=== PATIENT | female | born 1955 | race Caucasian/White ===

== ENCOUNTER 2016-12-04 03:41 | Inpatient (IN) | payer MEDICAID ==
[2016-12-04] MEDS ORDERED: PHENOBARB/HYOSCY/ATROPINE/SCOP 16.2 MG/5 ML SYR ONE (04:04)
[2016-12-04] MEDS ORDERED: MAG-AL PLUS XS SUSP 30 ML UDC ONE (04:04)
[2016-12-04] MEDS ORDERED: LIDOCAINE VISCOUS 2% 15 ML UDC ONE (04:05)
[2016-12-04 04:12] LABS: BASOPHIL# 0.3 X 10^3uL (0.0-0.1); BASOPHILS 1.5 % (0.0-2.0); EOSINOPHILS 2.6 % (0.0-6.0); EOSINOPHILS# 0.4 X 10^3uL (0.0-0.4); HEMATOCRIT 41.1 % (36.0-48.0); HEMOGLOBIN 14.1 g/dL (12.0-16.0); LYMPHOCYTES 19.3 % (20.0-40.0); LYMPHOCYTES# 3.3 X 10^3uL (0.8-3.8); MEAN CELL VOLUME 89.5 fL (80.0-100.0); MEAN CORPUS. HGB CONCENTRATION 34.2 g/dL (32.0-36.0); MEAN CORPUSCULAR HEMOGLOBIN 30.6 pg (29.0-35.0); MEAN PLATELET VOLUME 7.2 fL (7.4-10.4); MONOCYTES 7.5 % (2.0-10.0); MONOCYTES# 1.3 X 10^3uL (0.2-1.0); NEUTROPHILS# 11.8 X 10^3uL (2.6-6.7); PLATELET COUNT 590 X 10^3uL (130-440); RED BLOOD COUNT 4.59 X 10^6uL (4.20-6.10); RED CELL DISTRIBUTION WIDTH 12.9 % (11.5-14.5); WHITE BLOOD COUNT 17.1 X 10^3uL (3.9-10.7)
[2016-12-04] MEDS ORDERED: HYDROmorphone HCL 1 MG/ML SYR ONE ×3 (04:19→13:33)
[2016-12-04 04:20] LABS: ALBUMIN 4.5 g/dL (3.5-5.0); ALKALINE PHOSPHATASE 99 U/L (38-126); ALT 28 U/L (9-52); AST 20 U/L (14-36); BILIRUBIN, DIRECT 0.2 mg/dL (0.0-0.4); BILIRUBIN, TOTAL 0.6 mg/dL (0.2-1.3); BLOOD UREA NITROGEN 14 mg/dL (7-17); CALCIUM 9.4 mg/dL (8.4-10.2); CHLORIDE 100 mmol/L (98-107); CREATININE 0.9 mg/dL (0.5-1.0); EST GLOMERULAR FILTRATION RATE > 60 mL/min; GLUCOSE 141 mg/dL (70-100); LIPASE 55 U/L (23-300); SODIUM 137 mmol/L (137-145); TOTAL PROTEIN 7.9 g/dL (6.3-8.2)
[2016-12-04] MEDS ORDERED: LORazepam 2 MG/ML INJ ONE (04:20)
[2016-12-04 04:26] LABS: NEUTROPHILS 69.1 % (54.0-75.0)
[2016-12-04] MEDS ORDERED: ONDANSETRON HCL 4 MG/2 ML VIAL ONE ×2 (08:54→19:48)
[2016-12-04] MEDS ORDERED: DIAZEPAM 10 MG/2 ML SYR ONE (10:46)
[2016-12-04] MEDS ORDERED: KETOROLAC TROMETHAMINE 30 MG/ML VIAL ONE (11:07)
[2016-12-04 11:35] LABS: TROPONIN I < 0.012 ng/mL (0.00-0.034)
[2016-12-04 12:53] LABS: URINE MUCUS NONE SEEN (Up to 25%); URINE RBC NONE SEEN (0-5/hpf); URINE SQUAMOUS EPITHELIAL CELL NONE SEEN (<= 15/hpf)
[2016-12-04 13:03] LABS: URINE APPEARANCE SLIGHTLY CLOUDY; URINE COLOR YELLOW; URINE LEUKOCYTE ESTERASE 75 WBC/uL (2+) (NEGATIVE); URINE NITRITE NEGATIVE (NEGATIVE); URINE PH 5.5 (5-7)
[2016-12-04 13:04] LABS: URINE BACTERIA <10 ORGANISMS/hpf (<10/hpf); URINE BILIRUBIN NEGATIVE (NEGATIVE); URINE BLOOD NEGATIVE (NEGATIVE); URINE GLUCOSE NORMAL (NEGATIVE); URINE KETONE NEGATIVE (NEGATIVE); URINE PROTEIN NEGATIVE (NEG - TRACE); URINE TRANSITIONAL EPI CELL 0-5/hpf (<=5/hpf); URINE UROBILINOGEN 0.2mg/dL (Normal) (NEG-1mg/dL)
--- NOTE | 2016-12-04 13:31 | CT REPORT ---
HISTORY: Acute chest pain, shortness of breath and elevated d-dimer. TECHNIQUE: This examination was performed using automated exposure control, adjustment of mA or kV according to patient size, and/or use of iterative reconstruction technique. Thin section axial CT images were obt ained through the chest and reformatted in coronal planes after the intravenous administration of 100 cc Isovue 370 contrast. Three-D reformatted images were created and viewed on a 3-D workstation. FINDINGS: There is no pulmonary embolus. There is a moderate-large left pleural effusion with associated compre ssive atelectasis in the left lower lobe. There is no pneumothorax. There is mild dependent atelectasis in the right lower lobe. Bilateral breast prostheses are noted. No osseous lesions are seen. IMPRESSION: 1. No evidence of a pulmonary embolus. 2. Moderate-large left pleural effusion with moderate associated compressive atelectasis in the left lower lobe. Superimposed pneumonia cannot be excluded. Final Electronic Signature: This report was electronically signed by Ron Alford MD on 017 1:28 PM. regulo /
[2016-12-04] MEDS ORDERED: CEFTRIAXONE SODIUM 1,000 MG/10 ML VIAL ONE (14:00)
[2016-12-04] MEDS ORDERED: NORMAL SALINE 200 ML IV ONE (14:01)
[2016-12-04] MEDS ORDERED: AZITHROMYCIN IV ONE (14:01)
[2016-12-04] MEDS ORDERED: HOME MEDICATION LIST NEEDED 1 EA EACH MC ONE (14:20)
[2016-12-04] MEDS ORDERED: ALBUTEROL 0.083% 2.5 MG/3 ML VIAL.NEB IH PRN (14:32)
[2016-12-04] MEDS ORDERED: MORPHINE PCA 30 MG/30 ML PCA.VIAL IV PRN ×2 (14:59→16:17)
[2016-12-04] MEDS ORDERED: NALOXONE HCL 0.4 MG/ML VIAL IV PRN (14:59)
--- NOTE | 2016-12-04 15:25 | ER PHYSICIAN DOCUMENTATION ---
Physician Documentation [facility] Name:Candy Valencia Age:61 yrs Sex:Female :1955 Arrival Date:12/04/2016 Time:03:41 Bed4 Private MD: Asif Alcaraz Disposition: 12/04/16 13:56 Admit ordered for Doni Brink. Preliminary diagnosis are Atypical Chest Pain, Pleural Effusion, Unspecified, Pneumonia, Unspecified. - Bed requested for Medical/Surgical. - Condition is Fair. - Problem is new. - Symptoms are unchanged. 23 HR OBS Yes HPI: 12/04 13:36 This 61 yrs old Female presents to ER via Walk In with complaints of jm Abdominal Pain. 13:36 The patient presents with abdominal pain in the left lower quadrant. Onset: The jm symptoms/episode began/occurred 4 day(s) ago. The symptoms do not radiate. Associated signs and symptoms: none. The symptoms are described as sharp, stabbing. Modifying factors: the symptoms are aggravated by breathing deeply, movement. Severity of pain: in the emergency department the pain is a 10 / 10. The patient has not experienced similar symptoms in the past. The patient has not recently seen a physician. Pt's had 3 days of chest pain that has worsened. Pt thinks she lifted too much weight. No cough or fever. No hx of clots. . Historical: - Allergies: No known drug Allergies; - Home Meds: 1. Seroquel Oral 2. Wellbutrin Oral 3. Lamictal Oral - PMHx: BIPOLAR DISORDER; - PSHx: c section; - Tetanus: < 10 years. - Ebola Screening: : Patient denies exposure to infectious person. Patient denies travel to an Ebola-affected area in the 21 days before illness onset. . - Immunization history: Flu Vaccine None. - Social history: Smoking status: Patient states was never smoker of tobacco. Patient/guardian denies using alcohol. - Code Status:: Full code. ROS: 13:38 Constitutional: Negative for fatigue, fever. jm 13:38 Cardiovascular: Positive for chest pain. 13:38 Respiratory: Positive for pleurisy, Negative for cough. 13:38 Abdomen/GI: Positive for abdominal pain, Negative for nausea, vomiting. 13:38 All other systems are negative. Exam: 13:39 Constitutional: The patient appears alert, awake. chase 13:39 Eyes: Periorbital structures: appear normal, Extraocular movements: intact throughout. 13:39 ENT: Mouth: is normal, Voice: is normal. 13:39 Chest/axilla: Palpation: tenderness, that is mild, of the left lateral anterior chest and left breast, that partially reproduces the patient's complaints, Breasts: are normal. 13:39 Cardiovascular: Rate: normal, Rhythm: regular. 13:39 Respiratory: Respirations: normal, Breath sounds: are normal. 13:39 : CVA tenderness, is absent, Bladder: is normal. 13:39 Musculoskeletal/extremity: DVT Exam: No signs of deep vein thrombosis. Calves: are non-tender, have equal circumference. 13:39 Skin: Appearance: Color: pink, no rash present. 13:39 Neuro: Mentation: is normal, Memory: is normal. 13:39 Psych: Behavior/mood is pleasant, cooperative, anxious, Affect is calm. Vital Signs: 04:03 BP 133 / 83; Pulse 98; Resp 28; Temp 98.1; Pulse Ox 94% on R/A; Weight 47.63 kg; Height lb 5 ft. 3 in. (160.02 cm); Pain 10/10; 04:40 BP 95 / 70; lb 06:00 BP 80 / 60; Pulse 75; Resp 12; Pulse Ox 92% on R/A; Pain 1/10; tg 06:40 BP 94 / 66; Pulse 75; Pulse Ox 92% on R/A; tg 08:14 BP 93 / 65; Pulse 74; Pulse Ox 92% on R/A; tg 09:15 BP 97 / 58; Pulse 75; Pain 3/10; tg 13:20 BP 96 / 63; Pulse 81; Resp 22; Temp 99.2; Pulse Ox 93% on 2 lpm NC; Pain 8/10; rs 15:09 BP 92 / 54; Pulse 80; Pulse Ox 98% on NC; tg 04:03 Body Mass Index 18.60 (47.63 kg, 160.02 cm) lb MDM: 04:06 Patient medically screened. chase 11:06 Differential diagnosis: non-specific abd pain, pancreatitis, rib/muscle starin/sprain. chase PE. IA. Data reviewed: vital signs, nurses notes, old medical records, lab test result(s), EKG, radiologic studies, and as a result, I will discharge patient. Counseling: I had a detailed discussion with the patient and/or guardian regarding: the historical points, exam findings, and any diagnostic results supporting the discharge/admit diagnosis, lab results, radiology results, the need for outpatient follow up, with the patient's primary care provider. Medication response: The patient's symptoms have improved, Dilaudid. ED course: I cannot find an emergent cause for the pt's pain. Her WBC is up, but pt was VERY stressed out on arrival. Her pain is very positional, palpable, and worse w deep inspiration. PE was unlikely, but I did a D-dimer which was slightly bumped but way under the new thresholds that we use for concern (agex10). Pt is better after meds. . 13:40 Physician consultation: Doni Brink MD regarding admission, and will see patient jm immediately. ED course: CT shows a moderate to large pleural effusion. This could represent a PNA, so will will get blood clx and start CAP Abx. Dr. Brink will come see and write orders. . 17:55 EKG attached tg 12/04 04:22 Order name: BASIC METABOLIC PANEL; Complete Time: 12:32 EDMS 12/04 04:22 Order name: HEPATIC PANEL; Complete Time: 12:32 EDMA 12/04 04:22 Order name: LIPASE; Complete Time: 12:32 ED12/04 04:26 Order name: CBC AUTO DIF, MDIF/RMOR IF IND; Complete Time: 12:32 EDMA 12/04 10:53 Order name: DDIMER; Complete Time: 11:06 EDMA 12/04 11:36 Order name: TROPONIN I; Complete Time: 12:32 EDMA 12/04 13:05 Order name: UA W/ MICRO -CULTURE IF IND; Complete Time: 13:30 EDMS 12/04 13:34 Order name: CAT SCAN; CHEST ANGIO 16616 EDMA 12/04 03:55 Order name: NPO; Complete Time: 03:57 lb 12/04 04:37 Order name: 12-lead EKG; Complete Time: 04:39 jm 12/04 10:40 Order name: Oxygen; Complete Time: 10:45 tg Dispensed Medications: Completed: Rocephin 1 grams IVPB once 03:57 Drug: GI Cocktail w/ Donnatol - (Maalox Suspension 30 ml, Phenobarbital-Belladonna 15 lb ml, Lidocaine Liquid 2 % 15 ml); Route: PO; 04:15 Follow up: Response: Pain is unchanged, physician notified lb 04:14 Drug: Ativan 1 mg; Route: IVP; Site: left antecubital; lb 04:40 Follow up: Response: Anxiety decreased lb 04:14 Drug: Dilaudid 1 mg; Route: IVP; Site: left antecubital; lb 04:39 Follow up: Response: Pain is decreased lb 06:00 Drug: NS 0.9% 1000 ml; Route: IV; Rate: bolus; Site: left antecubital; Delivery: tg [place] Tubing; 08:54 Follow up: IV Status: Completed infusion; IV Intake: 1000ml tg 08:54 Drug: Zofran 4 mg; Route: IVP; Infused Over: 2 mins; Site: left antecubital; tg 09:15 Follow up: Response: No adverse reaction tg 08:54 Drug: Dilaudid 0.5 mg; Route: IVP; Site: left antecubital; tg 09:15 Follow up: Response: No adverse reaction; Pain is decreased tg 09:20 Drug: Dilaudid 0.5 mg; Route: IVP; Site: left antecubital; tg 10:44 Follow up: Response: No adverse reaction; Pain is increased tg 10:33 CANCELLED (Physician Discretion): Ativan 1 mg IVP once jm 10:39 Drug: Valium 5 mg; Route: IVP; Site: left antecubital; tg 10:58 Follow up: Response: No change in condition tg 10:59 Drug: Toradol 30 mg; Route: IVP; Site: left antecubital; tg 13:57 Follow up: Response: No adverse reaction; No change in condition tg 13:27 Drug: Dilaudid 1 mg; Route: IVP; Rate: 0.5 mg/min; Infused Over: 2 mins; Site: left rs antecubital; 14:53 Follow up: Response: No adverse reaction; No change in condition; Pain is decreased rs 14:00 Drug: Rocephin 1 grams; Volume: 100 ml; Route: IVPB; Rate: 100 ml/hr; Site: left rs antecubital; 14:30 Follow up: Response: No adverse reaction; IV Status: Completed infusion; IV Intake: rs 100ml 14:42 Drug: Zithromax 500 mg; Volume: 100 ml; Route: IVPB; Rate: 100 ml/hr; Site: left rs antecubital; Delivery: IVPB Tubing; 14:54 Follow up: Response: No adverse reaction rs 15:27 Follow up: IV Status: Completed infusion; IV Intake: 100ml tg Signatures: Robb Padilla RN RN tg Stalker, Rachael, RN RN rs Meyer, John, MD MD jm Bollock, Lynda lb
--- NOTE | 2016-12-04 15:25 | ER NURSING DOCUMENTATION ---
Nurse's Notes [facility] Name:Candy Valencia Age:61 yrs Sex:Female :1955 Arrival Date:12/04/2016 Time:03:41 Bed4 Private MD: Diagnosis:Atypical Chest Pain;Pleural Effusion, Unspecified;Pneumonia, Unspecified Presentation: 12/04 03:50 Notified ED Physician of [place] notified. lb 03:50 Acuity: INOCENTE 3 lb 03:59 Presenting complaint: Patient states: left upper quad abd pain for 3 hrs, constant, lb unable to find any relief. denies n/v/d. no fever. Transition of care: Home. 03:59 Method Of Arrival: Walk In lb Triage Assessment: 04:01 General: Appears distressed, uncomfortable, Behavior is anxious, restless. Pain: lb Complains of pain in left upper quadrant Pain does not radiate. Pain currently is 10 out of 10 on a pain scale. Pain began 3 hours ago. GI: Abdomen is flat, non- distended. Historical: - Allergies: No known drug Allergies; - Home Meds: 1. Seroquel Oral 2. Wellbutrin Oral 3. Lamictal Oral - PMHx: BIPOLAR DISORDER; - PSHx: c section; - Tetanus: < 10 years. - Ebola Screening: : Patient denies exposure to infectious person. Patient denies travel to an Ebola-affected area in the 21 days before illness onset. . - Immunization history: Flu Vaccine None. - Social history: Smoking status: Patient states was never smoker of tobacco. Patient/guardian denies using alcohol. - Code Status:: Full code. Screenin:04 Infectious Disease Risk None. Abuse screen: Denies threats or abuse. Denies injuries lb from another. Nutritional screening: No deficits noted. Assessment: 04:04 See Triage Assessment done by same RN. lb 05:21 Reassessment: pt much improved. will rest in ED until med reaction wears off. will lb monitor. 08:50 Reassessment: Patient states symptoms have not improved. Pt states pain suddenly tg returned to left lower rib area. Dr. Gagnon notified, new order for IV Dilaudid. . 09:49 Reassessment: Patient states feeling better. Patient states symptoms have improved. Pt tg not ready to go home yet, she would like to make sure the pain medicine continues to work. . Vital Signs: 04:03 BP 133 / 83; Pulse 98; Resp 28; Temp 98.1; Pulse Ox 94% on R/A; Weight 47.63 kg; Height lb 5 ft. 3 in. (160.02 cm); Pain 10/10; 04:40 BP 95 / 70; lb 06:00 BP 80 / 60; Pulse 75; Resp 12; Pulse Ox 92% on R/A; Pain 1/10; tg 06:40 BP 94 / 66; Pulse 75; Pulse Ox 92% on R/A; tg 08:14 BP 93 / 65; Pulse 74; Pulse Ox 92% on R/A; tg 09:15 BP 97 / 58; Pulse 75; Pain 3/10; tg 13:20 BP 96 / 63; Pulse 81; Resp 22; Temp 99.2; Pulse Ox 93% on 2 lpm NC; Pain 8/10; rs 15:09 BP 92 / 54; Pulse 80; Pulse Ox 98% on NC; tg 04:03 Body Mass Index 18.60 (47.63 kg, 160.02 cm) lb ED Course: 03:42 Patient arrived in ED. jt 03:50 Taisha Marion is Primary Nurse. lb 03:55 Triage completed. lb 04:04 Valuables Remains with patient Patient has correct armband on for positive lb identification. Placed in gown. Bed in low position. 04:06 Asif Gagnon MD is Attending Physician. jm 04:06 Inserted peripheral IV: saline lock: 20 gauge in left antecubital area and blood jt collected. 04:40 EKG done per protocol. Performed by ED Staff. lb 04:48 Port Xray Completed. hz 06:57 Appears to be sleeping. tg 06:57 Pulse Ox - RN Monitoring Only. tg 10:40 Oxygen Oxygen administration via nasal cannula @ 2L/min. tg 11:00 Door closed. Noise minimized. Lights dimmed. Verbal reassurance given. Warm blanket rs given. Diet: Patient is NPO. 12:[address] pm1 12:54 Wound care. tg 13:16 Patient moved back from CT. pm1 13:55 Doni Brink MD is Admitting Physician. jm 13:58 First set of blood cultures drawn Second set of blood cultures drawn by me by Lab tg staff. Inserted peripheral IV: 22 gauge in right forearm. 17:55 EKG attached tg Administered Medications: Completed: Rocephin 1 grams IVPB once 03:57 Drug: GI Cocktail w/ Donnatol - (Maalox Suspension 30 ml, Phenobarbital-Belladonna 15 lb ml, Lidocaine Liquid 2 % 15 ml); Route: PO; 04:15 Follow up: Response: Pain is unchanged, physician notified lb 04:14 Drug: Ativan 1 mg; Route: IVP; Site: left antecubital; lb 04:40 Follow up: Response: Anxiety decreased lb 04:14 Drug: Dilaudid 1 mg; Route: IVP; Site: left antecubital; lb 04:39 Follow up: Response: Pain is decreased lb 06:00 Drug: NS 0.9% 1000 ml; Route: IV; Rate: bolus; Site: left antecubital; Delivery: tg [place] Tubing; 08:54 Follow up: IV Status: Completed infusion; IV Intake: 1000ml tg 08:54 Drug: Zofran 4 mg; Route: IVP; Infused Over: 2 mins; Site: left antecubital; tg 09:15 Follow up: Response: No adverse reaction tg 08:54 Drug: Dilaudid 0.5 mg; Route: IVP; Site: left antecubital; tg 09:15 Follow up: Response: No adverse reaction; Pain is decreased tg 09:20 Drug: Dilaudid 0.5 mg; Route: IVP; Site: left antecubital; tg 10:44 Follow up: Response: No adverse reaction; Pain is increased tg 10:33 CANCELLED (Physician Discretion): Ativan 1 mg IVP once jm 10:39 Drug: Valium 5 mg; Route: IVP; Site: left antecubital; tg 10:58 Follow up: Response: No change in condition tg 10:59 Drug: Toradol 30 mg; Route: IVP; Site: left antecubital; tg 13:57 Follow up: Response: No adverse reaction; No change in condition tg 13:27 Drug: Dilaudid 1 mg; Route: IVP; Rate: 0.5 mg/min; Infused Over: 2 mins; Site: left rs antecubital; 14:53 Follow up: Response: No adverse reaction; No change in condition; Pain is decreased rs 14:00 Drug: Rocephin 1 grams; Volume: 100 ml; Route: IVPB; Rate: 100 ml/hr; Site: left rs antecubital; 14:30 Follow up: Response: No adverse reaction; IV Status: Completed infusion; IV Intake: rs 100ml 14:42 Drug: Zithromax 500 mg; Volume: 100 ml; Route: IVPB; Rate: 100 ml/hr; Site: left rs antecubital; Delivery: IVPB Tubing; 14:54 Follow up: Response: No adverse reaction rs 15:27 Follow up: IV Status: Completed infusion; IV Intake: 100ml tg Intake: 08:54 IV: 1000ml; Total: 1000ml. tg 14:30 IV: 100ml; Total: 1100ml. rs 15:27 IV: 100ml; Total: 1200ml. tg Outcome: 05:30 Discharge ordered by . chase 13:56 Decision to Admit by Provider. jm 15:23 Admitted to Med/surg accompanied by nurse, via stretcher, with oxygen. tg 15:23 Condition: improved 15:23 Report given to MARTIN Stuart 15:23 Discharge Assessment: Patient awake and alert. 15:23 Instructed on need to admit 15:23 Admitted to Med/surg accompanied by nurse. rs 15:23 Condition: improved 15:24 Patient left the ED. tg Signatures: Robb Padilla RN RN tg Zulay Blunt RN RN rs Meyer, John, MD MD jm McBride, Philisha pm1 Kita Perez Lynda lb Zolnowski, Heather
[2016-12-04] MEDS: NORMAL SALINE 1,000 ML IV SCH (16:00)
[2016-12-04] MEDS ORDERED: POLYETHYLENE GLYCOL 3350 17 GM POWD.PACK PO SCH (16:00)
[2016-12-04] MEDS ORDERED: NORMAL SALINE 1,000 ML IV ONE (16:04)
[2016-12-04] MEDS ORDERED: ONDANSETRON HCL 4 MG/2 ML VIAL IV PRN (19:45)
[2016-12-04] MEDS: LAMOTRIGINE 25 MG TABLET PO SCH (20:34)
[2016-12-04] MEDS: DOCUSATE SODIUM 100 MG CAPSULE PO SCH (20:34)
[2016-12-04] MEDS ORDERED: QUETIAPINE FUMARATE 100 MG TABLET PO SCH (21:00)
[2016-12-05] MEDS ORDERED: O2 HUMIDIFIER 650 ML BOTTLE INHALATION ONE (01:35)
[2016-12-05] MEDS: NORMAL SALINE 1,000 ML IV SCH (06:30)
[2016-12-05 06:31] LABS: BLOOD UREA NITROGEN 7 mg/dL (7-17); CALCIUM 8.1 mg/dL (8.4-10.2); CHLORIDE 102 mmol/L (98-107); CREATININE 0.6 mg/dL (0.5-1.0); EST GLOMERULAR FILTRATION RATE > 60 mL/min; GLUCOSE 106 mg/dL (70-100); POTASSIUM 3.8 mmol/L (3.5-5.1); SODIUM 132 mmol/L (137-145)
[2016-12-05 06:35] VITALS: O2SAT 95
[2016-12-05 06:49] LABS: HEMATOCRIT 39.8 % (36.0-48.0); HEMOGLOBIN 13.2 g/dL (12.0-16.0); MEAN CELL VOLUME 90.6 fL (80.0-100.0); MEAN CORPUS. HGB CONCENTRATION 33.1 g/dL (32.0-36.0); MEAN PLATELET VOLUME 7.1 fL (7.4-10.4); PLATELET COUNT 447 X 10^3uL (130-440); RED CELL DISTRIBUTION WIDTH 12.8 % (11.5-14.5); WHITE BLOOD COUNT 25.9 X 10^3uL (3.9-10.7)
[2016-12-05 06:52] LABS: BAND% (Manual) 10 % (0.0-1.0); EOSINOPHIL % (Manual) 1 % (0.0-6.0); LYMPHOCYTE % (Manual) 4 % (20.0-40.0); MONOCYTE % (Manual) 6 % (2.0-10.0); NEUTROPHIL % (Manual) 79 % (54.0-75.0)
[2016-12-05 06:54] LABS: PLATELET ESTIMATE INCREASED
[2016-12-05 07:35] VITALS: RESP 14
--- NOTE | 2016-12-05 07:42 | HISTORY & PHYSICAL ---
DATE OF ADMISSION: 12/04/16 ATTENDING PHYSICIAN: Doni Brink MD PRIMARY CARE PHYSICIAN: Mayra Lala MD HISTORY OF PRESENT ILLNESS: This 61-year-old woman has a 5-day history of some left lower lateral pleuritic chest pains. Over the last 36 hours, she has also developed some cough, but no fever or chills. She has no previous history of pneumonia. She is generally healthy. She denies any recent unintentional weight loss. She has never smoked and has no chronic lung disease. PAST MEDICAL HISTORY 1. Bipolar disorder. 2. History of abnormal suppression of the TSH with normal free T4 and free T3. 3. Hyperlipidemia. 4. Insomnia. 5. Previous hyponatremia. 6. Previous alcohol abuse, now in remission. ALLERGIES: No known drug allergies. MEDICATIONS Lamictal 200 mg every morning Seroquel 600 mg daily at bedtime Wellbutrin XL 450 mg daily SURGICAL HISTORY 1. Caesarean sections x4, followed by a total hysterectomy. 2. Bilateral breast augmentation with repair later for a ruptured implant. FAMILY HISTORY: Her sister had diabetes and has . Her father of smoking related issues. Her mother in her 90s. No family history of hypercoagulability. SOCIAL HISTORY: Patient has never smoked and does not use alcohol. She is and has lived here in [place] about 5 years. She is a full-code status. Her Medical Power of [employer] is her son Dennis Valencia Jr. at [phone]. REVIEW OF SYSTEMS GENERAL: Some malaise. No fever or chills. RESPIRATORY: Left lower lateral pleuritic chest pain, mild tachypnea and cough. CARDIOVASCULAR: No palpitations. Chest pain. GI: No distention, constipation, or abdominal pain other than the left lower lateral pleuritic chest pain. No nausea or vomiting. MUSCULOSKELETAL: No pedal edema. : No dysuria or frequency. PHYSICAL EXAMINATION VITAL SIGNS: Blood pressure 133/83, pulse 98, respiratory rate 28, O2 saturation 94% on room air and temperature 98.1. Weight was 47.6 pounds with a height of 5 feet, 3 inches. GENERAL: She was alert and oriented x3 and in no acute distress when I evaluated her after she had 30 mg of Toradol IV, a total of 4 mg of Dilaudid IV and 1 mg of Ativan. Prior to that she had intractable left lower lateral chest pains. HEENT: Oral mucosa was dry. NECK: Without adenopathy, supple. LUNGS: Diminished breath sounds in the left base, otherwise clear but distant breath sounds. She was unable to take a deep breath because of the persistent pleuritic pain. She has some chest wall pain on the left lower lateral ribs. ABDOMEN: Soft and nontender with normal bowel sounds. No masses or hepatosplenomegaly. EXTREMITIES: Without edema. LABORATORY DATA: A white count of 17,100 with 69% neutrophils and 19% lymphs. Hemoglobin was 14, hematocrit 41 and platelets were 590,000. Her sodium was 137 , potassium 4.0, chloride 100, CO2 26, creatinine 0.9, glucose 141. Calcium 9.4 , LFTs were normal. Troponin was less than 0.012. Lipase 55. Her urine was dipstick negative except for 2+ leukocytes and 5-10 WBCs per high powered field. D-Dimer was 315. IMAGING: Patient's chest x-ray was difficult to interpret because of her bilateral breast implants. No obvious infiltrate. Question of the left pleural effusion. CT scan confirmed a moderate sized pleural effusion on the left. It was difficult to tell if this was hiding an infiltrate. No masses or lymphadenopathy. IMPRESSION 1. Moderate left pleural effusion, most likely parapneumonic given her white count and lack of risk factor for lung cancer. 2. Pleuritic left sided chest pain related to #1. 3. Bipolar disorder, well controlled. PLAN: Patient received Rocephin 1 gram IV and Azithromycin 500 mg IV in the Emergency Department after obtaining blood cultures. I discussed with her the option of trying to get a thoracentesis with possible chest tube placement, prior to antibiotic treatment versus doing the antibiotics first and seeing if her effusion will resolve gradually. She much preferred the later approach. She will continue on the Rocephin and Azithromycin here. If she is not clearly improving by Tuesday, she will need to undergo a thoracentesis and possible chest tube placement. I will continue her on her usual medications for bipolar disorder. For the pain, I plan to give her Dilaudid [employer]. The Toradol was not very helpful in the Emergency Department, but will be available for PRN use. MTDD
[2016-12-05] MEDS ORDERED: KETOROLAC TROMETHAMINE 30 MG/ML VIAL IV PRN (08:19)
[2016-12-05] MEDS ORDERED: KETOROLAC TROMETHAMINE 30 MG/ML VIAL ONE (08:21)
--- NOTE | 2016-12-05 08:44 | DC SUMMARY: IM Note ---
Discharge Summary: IM/Peds Provider: Date of Admission: 12/04/16 Admitting Provider: NICOLAS KHAN MD Attending Provider: SEJAL MCKEON MD Discharging Provider: NICOLAS KHAN MD Primary Care Provider: Discharge Date: 12/05/16 - Diagnosis (1) Parapneumonic effusion Status: Acute (2) Empyema of left pleural space Status: Acute (3) Hypoxia Status: Acute (4) Bipolar disorder in full remission Status: Acute Hospital Course: This 61-year-old patient of Dr. Márquez was admitted to the [facility] in the afternoon on 12/04/16 after a 5 day history of left lower lateral pleuritic chest pain and a 2 day history of some minor cough. She was found to have a moderate to large left pleural effusion on CT scan with a white count of 17,000 presumably related to pneumonia and parapneumonic effusion. No pulmonary emboli. An overnight attempted at treating her with Rocephin and azithromycin without surgical drainage was unsuccessful. Her pleuritic pain continued, despite a Dilaudid FREIGHT COORDINATOR. Her white count damaris from 17,000-25,000 and she had fevers up to 37.8 C. She is requiring 2 l/m of O2 pnc. I discussed the case with Dr. Lobo, who is covering for General Surgery for [place]. He felt it would be safest to have the patient transferred to [facility] for thoracentesis and possible chest tube placement, rather than attempting that here in [facility]. The patient agreed, and she will be transferred to [facility] by ambulance. and just a couple days some fairly mild cough fevers home but on CT she - Time Spent with Patient Total time spent providing and/or coordinating discharge services: Discharge - Patient/Caregiver Discharge Instructions Diet: NPO until chest procedure is done Additional Instructions: Transferred by ambulance to [facility] to Dr. Russo. Overall discharge status: other (Worsening but not critical) Disposition: [facility] 1. Medical reason for no anticoagulation order on D/C?: Contraindicated 2. Medical reason for no anticoag overlap on D/C?: Contraindicated Discharge Summary Data - Medication History Medication History: Home Medications Biotin 1,000 mcg PO DAILY 12/04/16 Flibanserin [Addyi] 100 mg PO HS 12/04/16 Lactose-Reduced Food [Protein Nutritional Shake] 414 ml PO DAILY 12/04/16 Lamotrigine [Lamotrigine*] 100 mg PO BID 12/04/16 Quetiapine Fumarate [Seroquel*] 600 mg PO HS 12/04/16 buPROPion XL DAILY [Wellbutrin Xl Daily*] 450 mg PO DAILY 12/04/16 Inpatient Medications 12/04/16 16:17 Morphine FREIGHT COORDINATOR 0 mg IV PRN PRN 12/04/16 19:45 Ondansetron HCl [Zofran] 4 mg IV Q6H PRN 12/04/16 21:00 Lamotrigine [Lamictal] 100 mg PO BID Quetiapine Fumarate [Seroquel] 600 mg PO HS 12/05/16 08:19 Ketorolac Tromethamine [Toradol] 15 mg IV Q6H PRN 12/05/16 09:00 buPROPion XL DAILY [Wellbutrin Xl Daily] 450 mg PO DAILY Procedures and tests throughout hospitalization: Completed Lab Orders 12/05/16 06:10 CBC W/ MANUAL DIFFERENTIAL [HEM] Routine Pending Orders 12/04/16 16:17 Morphine FREIGHT COORDINATOR 0 mg IV PRN PRN 12/04/16 19:45 Ondansetron HCl [Zofran] 4 mg IV Q6H PRN 12/04/16 21:00 Lamotrigine [Lamictal] 100 mg PO BID Quetiapine Fumarate [Seroquel] 600 mg PO HS 12/05/16 08:19 Ketorolac Tromethamine [Toradol] 15 mg IV Q6H PRN 12/05/16 09:00 buPROPion XL DAILY [Wellbutrin Xl Daily] 450 mg PO DAILY Labs on day of discharge: Labs from last 24 hours 12/05/16 06:10 WBC 25.9 H RBC 4.40 Hgb 13.2 Hct 39.8 MCV 90.6 MCH 30.0 MCHC 33.1 RDW 12.8 Plt Count 447 H MPV 7.1 L Total Counted 100 Neutrophils % Cancelled Neutrophils % (Manual) 79 H Band Neuts % (Manual) 10 H Lymphocytes % Cancelled Lymphocytes % (Manual) 4 L Monocytes % (Manual) 6 Eosinophils % Cancelled Eosinophils % (Manual) 1 Basophils % Cancelled Neutrophils # Cancelled Lymphocytes # Cancelled Monocytes Cancelled Monocytes # Cancelled Eosinophils # Cancelled Basophils # Cancelled Platelet Estimate Increased Sodium 132 L Potassium 3.8 Chloride 102 Carbon Dioxide 24 BUN 7 Creatinine 0.6 GFR Calculation > 60 Glucose 106 H Calcium 8.1 L IM: Discharge Physical Exam - I&O/Vital Signs I&O: Intake & Output 12/04/16 12/05/16 12/05/16 20:59 05:59 13:59 Intake Total Output Total Balance Weight Intake: IV Right Forearm Oral Output: Urine Emesis Other: Urine Appearance Urine Color Voiding Method # Voids # Bowel Movements Vital Signs: Last Vital Signs Temp 37.2 C 12/05/16 06:31 Pulse 106 H 12/05/16 07:26 Resp 14 12/05/16 07:26 BP 105/73 12/05/16 06:31 Pulse Ox 95 12/05/16 06:31 Oxygen Flow Rate 2 Oxygen Delivery Method Nasal Cannula - Constitutional General appearance: Present: thin. Absent: acute distress - Eye Eye exam: Absent: conjunctival injection - ENT ENT exam: Present: mucous membranes moist - Respiratory Respiratory exam: Present: chest wall tenderness (left lower lateral), decreased breath sounds (absent in the left lower lateral and posterior chest. Otherwise clear) - Cardiovascular Cardiovascular exam: Present: tachycardia (sinus) - GI/Abdominal GI/Abdominal exam: Present: soft. Absent: distended, tenderness - Extremities Exam Extremities exam: Present: normal inspection. Absent: calf tenderness, edema - Psychiatric Psychiatric exam: Present: anxious (mildly) - Allied Health Notes Allied health notes reviewed: nursing
[2016-12-05] MEDS: DOCUSATE SODIUM 100 MG CAPSULE PO SCH (08:46)
[2016-12-05] MEDS: LAMOTRIGINE 25 MG TABLET PO SCH (08:46)
[2016-12-05] MEDS ORDERED: buPROPion XL DAILY 150 MG TABLET PO SCH (09:00)
[2016-12-05 09:03] VITALS: BP 92/50; PULSE 88; TEMP 98
[2016-12-05] MEDS ORDERED: MORPHINE SULFATE 10 MG/ML SYR IV PRN (09:31)
[2016-12-05] MEDS ORDERED: MORPHINE SULFATE 4 MG/ML SYR ONE (09:42)
[2016-12-05] MEDS ORDERED: ONDANSETRON HCL 4 MG/2 ML VIAL ONE (09:42)
[2016-12-05] MEDS ORDERED: MORPHINE SULFATE 2 MG/ML SYR ONE (09:42)
[2016-12-05] MEDS ORDERED: CEFTRIAXONE SODIUM 1,000 MG in NORMAL SALINE MINI-BAG+ 100 ML IV SCH (14:00)
[2016-12-06] MEDS ORDERED: AZITHROMYCIN 250 MG TABLET PO SCH (09:00)
--- NOTE | 2016-12-06 14:41 | RADIOLOGY REPORT ---
A limited single portable view of the chest is compared with prior examination dated 02/08/2013. Again noted is dextroscoliosis of the thoracic spine. The heart and vessels are unremarkable. The right lung field is clear. There has been interval development of nonspecific opacification at the left lung base. Fluid, versus atelectasis versus infiltrate. The left upper lung field is clear. No pneumothorax is seen. IMPRESSION: Interval development of nonspecific opacification at the left lung base. Please see CT report of the same date. [facility]
== END 2016-12-05 09:07 | disposition short-term general hospital (02) | DRG 204 ==
LOC: ER 03:41 → IN 15:15
PROVIDERS: ADMIT Family Medicine; ATTEND Internal Medicine
DX: R07.81 Pleurodynia (principal); J86.9 Pyothorax without fistula; F31.9 Bipolar disorder, unspecified; E78.5 Hyperlipidemia, unspecified; G47.00 Insomnia, unspecified; Z79.899 Other long term (current) drug therapy
CPT/HCPCS: 36415; 71010; 71275; 80048; 80076; 81001; 83690; 84484; 85007; 85025; 85027; 85379; 87040; 87086; 93005; 93041; 96361; 96365; 96367; 96375; 96376; 99285; A0425; A0427; E0555; J0456; J0696; J1170; J1885; J2060; J2270; J2405; J3360; J7030

== ENCOUNTER 2017-02-08 19:14 | Emergency (ER) | payer MEDICAID ==
[2017-02-08] MEDS ORDERED: ONDANSETRON HCL 4 MG/2 ML VIAL ONE ×2 (19:44)
[2017-02-08 20:00] LABS: BASOPHILS 0.2 % (0.0-2.0); EOSINOPHILS# 0.1 X 10^3uL (0.0-0.4); HEMATOCRIT 47.3 % (36.0-48.0); HEMOGLOBIN 16.3 g/dL (12.0-16.0); LYMPHOCYTES 3.6 % (20.0-40.0); LYMPHOCYTES# 0.5 X 10^3uL (0.8-3.8); MEAN CELL VOLUME 87.4 fL (80.0-100.0); MEAN CORPUS. HGB CONCENTRATION 34.5 g/dL (32.0-36.0); MEAN CORPUSCULAR HEMOGLOBIN 30.2 pg (29.0-35.0); MEAN PLATELET VOLUME 7.9 fL (7.4-10.4); MONOCYTES 3.6 % (2.0-10.0); MONOCYTES# 0.5 X 10^3uL (0.2-1.0); NEUTROPHILS 91.6 % (54.0-75.0); NEUTROPHILS# 11.5 X 10^3uL (2.6-6.7); PLATELET COUNT 308 X 10^3uL (130-440); RED BLOOD COUNT 5.41 X 10^6uL (4.20-6.10); RED CELL DISTRIBUTION WIDTH 14.1 % (11.5-14.5); WHITE BLOOD COUNT 12.6 X 10^3uL (3.9-10.7)
[2017-02-08] MEDS ORDERED: IPRATROPIUM/ALBUTEROL 0.5/3 MG 3 ML AMPUL.NEB INHALATION ONE (20:01)
[2017-02-08 20:06] LABS: BLOOD UREA NITROGEN 21 mg/dL (7-17); CALCIUM 9.8 mg/dL (8.4-10.2); CHLORIDE 101 mmol/L (98-107); CREATININE 0.9 mg/dL (0.5-1.0); EST GLOMERULAR FILTRATION RATE > 60 mL/min; GLUCOSE 120 mg/dL (70-100); MAGNESIUM 1.6 mg/dL (1.6-2.3); POTASSIUM 4.8 mmol/L (3.5-5.1); SODIUM 139 mmol/L (137-145)
[2017-02-08 20:23] LABS: TROPONIN I < 0.012 ng/mL (0.00-0.034)
[2017-02-08] MEDS ORDERED: ONDANSETRON ODT PREPAC 4 MG TAB.RAPDIS PO ONE (21:09)
[2017-02-08] MEDS ORDERED: LORazepam 0.5 MG TABLET ONE (21:10)
[2017-02-08] MEDS ORDERED: INHALER, ASSIST DEVICES 1 PKT EACH ONE (21:11)
[2017-02-08] MEDS ORDERED: ALBUTEROL HFA 1 INH INHALER INHALATION ONE (21:14)
--- NOTE | 2017-02-08 21:26 | ER PHYSICIAN DOCUMENTATION ---
Physician Documentation [facility] Name:Candy Valencia Age:61 yrs Sex:Female :1955 Arrival Date:02/08/2017 Time:19:14 BedTrauma-C Private MD:Mayra Lala ED, Chris Disposition: 02/08 20:34 Critical Care: not applicable. cd 21:45 Chart complete. cd Disposition: 02/08/17 20:47 Discharged to Home/Self Care. Impression: Anxiety Reaction, Vomiting - Dehydration, Bronchospasm- Acute. - Condition is Good. - Discharge Instructions: BRONCHOSPASM (Adult), DEHYDRATION (6y-Adult), VOMITING (6y-Adult), Anguish - ANXIETY REACTION. - Prescriptions for Zofran 4 mg Oral - take 1 tablet by ORAL route every 6 hours; 6 tablet. - Medical Reconciliation form form. - Follow up: Mayra Lala DO; When: 2 - 3 days; Reason: Recheck today's complaints, Continuance of care. - Problem is an ongoing problem. - Symptoms are resolved. - Notes: Take Ativan 0.5mg under tongue every 6 - 8 hours as needed for anxiety. Take Zofran 4mg under your tongue every 6 hours as needed for nausea or vomiting Push fluids / Gatorade. Use a Ventolin MDI 2 puffs by mouth every 6 hours as needed See Dr. Lala in 2 - 3 days for recheck. HPI: 19:25 This 61 yrs old Female presents to ER via Walk In with complaints of "Can't cd catch my breath" and mild mid back pain. 19:25 The patient has shortness of breath at rest, that occurred at home, and the patient has cd a history of lung disease, Patient was admitted to [facility] for 2 weeks in November 2016 for Bilateral Lower Lobe Pneumonia, a right sided effusion and Empyema which required draining. She has became anxious this evening when she could not "catch her breath". She arrived to the ED with an O2 saturation on RA of 97%. She denies high fever, chills, heaviness on her chest, calf swelling or hemoptysis. She has had no new sputum production. The patient did have a Thrombocytosis with a platelet count > 1 million while in the hospital.. Onset: The symptom(s)/episode began/occurred acutely, 2 hour(s) ago. Duration: The symptoms are continuous, but are markedly better than the original presentation. Associated signs and symptoms: Pertinent positives: nausea, vomiting, Pertinent negatives: chest pain, productive cough, diaphoresis, fever, hemoptysis, numbness in extremities. Severity of symptoms: At their worst the symptoms were moderate in the emergency department the symptoms have resolved and did so just prior to arrival. Historical: - Allergies: No known drug Allergies; - Home Meds: 1. Lamictal Oral 2. Seroquel Oral 3. Wellbutrin Oral - PMHx: BIPOLAR DISORDER; - PSHx: c section; breast augmentation; - Tetanus: < 10 years. - Ebola Screening: : Patient denies exposure to infectious person. Patient denies travel to an Ebola-affected area in the 21 days before illness onset. . - Immunization history: Flu Vaccine < 1 year. - Social history: Smoking status: Patient states was never smoker of tobacco. Patient/guardian denies using alcohol. - Code Status:: Full code. ROS: 19:25 ENT: Negative for injury, pain, epistaxis and discharge. cd Neck: Negative for injury, pain, stiffness and swelling. 19:25 Cardiovascular: Negative for chest pain, palpitations, edema and pleuritic pain. cd MS/Extremity: Negative for injury, deformity, edema, calf tenderness, pain or coldness. 19:25 Skin: Negative for injury, rash, itching and discoloration. 19:25 Constitutional: Positive for poor PO intake, Negative for chills, fever. 19:25 Respiratory: Positive for shortness of breath, Negative for cough, hemoptysis, pleurisy, sputum production, wheezing. 19:25 Abdomen/GI: Positive for nausea, vomiting, Negative for abdominal pain, diarrhea, anorexia, hematemesis, black/tarry stool, rectal bleeding. 19:25 Back: Positive for pain at rest, of the left scapular area. 19:25 Neuro: Negative for altered mental status, dizziness, numbness, weakness. 19:25 Psych: Positive for anxiety, Patient has a history of Bipolar Illness.. 19:25 All other systems are negative. Exam: Head/Face: Normocephalic, atraumatic. Eyes: Pupils equal round and reactive to light, extra-ocular motions intact. Lids and lashes normal. Conjunctiva and sclera are non-icteric and not injected. Cornea within normal limits. Periorbital areas with no swelling, redness, or edema. ENT: Nares patent. No nasal discharge, no septal abnormalities noted. Tympanic membranes are normal and external auditory canals are clear. Oropharynx with no redness, swelling, or masses, exudates, or evidence of obstruction, uvula midline. Mucous membranes moist. 19:35 Neck: Trachea midline, no thyromegaly or masses palpated, and no cervical cd lymphadenopathy. Supple, full range of motion without nuchal rigidity, or vertebral point tenderness. No Meningismus. Abdomen/GI: Soft, non-tender, with normal bowel sounds. No distension or tympany. No guarding or rebound. No evidence of tenderness throughout. Skin: Warm, dry with normal turgor. Normal color with no rashes, no lesions, and no evidence of cellulitis. MS/ Extremity: Pulses equal, no cyanosis. Neurovascular intact. Full, normal range of motion. 19:35 Neuro: Awake and alert, GCS 15, oriented to person, place, time, and situation. Cranial nerves II-XII grossly intact. Motor strength 5/5 in all extremities. Sensory grossly intact. Cerebellar exam normal. Normal gait. 19:35 Constitutional: The patient appears alert, awake, non-diaphoretic, non-toxic, well developed, well nourished, anxious, in obvious distress, mildly distressed. 19:35 Chest/axilla: Inspection: normal, Palpation: tenderness, that is moderate, of the left lateral posterior chest, that partially reproduces the patient's complaints. 19:35 Cardiovascular: Rate: normal, Rhythm: regular, Pulses: no pulse deficits are appreciated, Heart sounds: normal, Edema: is not appreciated. 19:35 Respiratory: mild respiratory distress is noted, Respirations: normal, no acute changes, Breath sounds: are normal, clear throughout, rales, are not appreciated, rhonchi, are not appreciated, wheezing, is not appreciated, bronchial sounds, are not appreciated. 19:35 Psych: Behavior/mood is pleasant, cooperative, anxious, Affect is verge of crying. Oriented to person, place, time, Judgement / Insight is normal. Memory is normal. Delusions/hallucinations are not present. Vital Signs: 19:26 BP 129 / 95; Pulse 94; Resp 22; Temp 98.2; Pulse Ox 97% on R/A; Weight 47.63 kg; Height lb 5 ft. 3 in. (160.02 cm); Pain 3/10; 21:00 BP 110 / 60; Pulse 70; Resp 16; Pulse Ox 95% on R/A; Pain 0/10; lb 19:26 Body Mass Index 18.60 (47.63 kg, 160.02 cm) lb Tom Coma Score: 19:35 Eye Response: spontaneous(4). Verbal Response: oriented(5). Motor Response: obeys cd commands(6). Total: 15. MDM: 19:16 Patient medically screened. cd 19:25 ECG:. 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 Interpretation: normal. 19:40 Differential diagnosis: Anemia Anxiety Reaction CHF exacerbation, Myocardial Infarction cd pneumonia, Pneumothorax Psychogenic pulmonary edema, Pulmonary Embolism reactive airway disease, Sepsis Unstable Angina. 19:50 Antibiotic administration: Not indicated, the patient does not have an appreciated cd infiltrate. 20:30 Data reviewed: vital signs, nurses notes, old medical records, lab test result(s), EKG, cd radiologic studies, and as a result, I will discharge patient, prescribe sedation medication, lorazepam. 20:45 Counseling: I had a detailed discussion with the patient and/or guardian regarding: the cd historical points, exam findings, and any diagnostic results supporting the discharge/admit diagnosis, lab results, radiology results, the need for outpatient follow up, for a recheck, with the patient's primary care provider, to return to the emergency department if symptoms worsen or persist or if there are any questions or concerns that arise at home. Response to treatment: the patient's symptoms have markedly improved after treatment, the patient's condition has returned to base line, the patient is now symptom free, and as a result, I will discharge patient. 02/08 20:04 Order name: CBC AUTO DIF, MDIF/RMOR IF IND; Complete Time: 20:34 EDMS 02/08 20:08 Interpretation: Normal Except: WHITE BLOOD COUNT 12.6; NEUTROPHILS 91.6; Elevated WBC cd with Left shift. 02/08 20:19 Order name: DDIMER; Complete Time: 20:34 EDMS 02/08 20:22 Interpretation: Normal. cd 02/08 20:24 Order name: BASIC METABOLIC PANEL; Complete Time: 20:34 EDMS 02/08 20:28 Interpretation: Normal. cd 02/08 20:24 Order name: MAGNESIUM; Complete Time: 20:34 EDMS 02/08 20:28 Interpretation: Normal. cd 02/08 20:24 Order name: TROPONIN I; Complete Time: 20:34 EDMS 02/08 20:28 Interpretation: Normal. cd 02/08 19:52 Order name: CHEST; SINGLE VIEW [id number]; Complete Time: 16:47 EDMS 02/09 16:46 Interpretation: Normal. cd 02/09 08:17 Order name: CHEST; SINGLE VIEW [id number]; Complete Time: 16:47 EDMS 02/09 16:47 Interpretation: Normal: See Report. cd 02/08 19:43 Order name: 12-lead EKG; Complete Time: 19:45 cd 02/08 19:43 Order name: Iv Saline Lock; Complete Time: 19:45 cd 02/08 19:43 Order name: Place Patient On Monitor; Complete Time: 19:45 cd 02/08 19:43 Order name: Pulse Ox Continuous; Complete Time: 19:45 cd EC: Rate is 95 beats/min. Rhythm is regular. QRS Larose is Normal. AR interval is normal. QRS cd interval is normal. QT interval is prolonged at 531 msec. No Q waves. T waves are Normal. No ST changes noted. Clinical impression: Normal ECG and No evidence of ischemia. Interpreted by me. Dispensed Medications: 19:35 Drug: Zofran 4 mg; Route: IVP; Infused Over: 2 mins; Site: right antecubital; mv 21:14 Follow up: Response: Nausea is decreased lb 19:54 Drug: Aspirin Chewable Tablet 324 mg; Route: PO; mv 21:14 Follow up: Response: No adverse reaction lb 19:54 Drug: DuoNeb (Albuterol 2.5 mg, Atrovent 0.5 mg); 3 ml; Route: Nebulizer; mv 21:14 Follow up: Response: No adverse reaction lb 21:14 Drug: Ativan 0.5mg 0.5 mg; Route: Sublingual; lb 21:15 Follow up: Response: Pharmacy closed - take home med pack lb 21:14 Drug: Zofran 1 tablet; Route: PO; lb 21:15 Follow up: Response: Pharmacy closed - take home med pack lb 21:14 Drug: Ventolin MDI 2 puffs; Route: Inhalation; lb 21:15 Follow up: Response: Pharmacy closed - take home med pack lb Signatures: Rodger Gregorio MD MD cd vogel, margaux mv Bollock, Lynda lb
--- NOTE | 2017-02-08 21:26 | ER NURSING DOCUMENTATION ---
Nurse's Notes [facility] Name:Candy Valencia Age:61 yrs Sex:Female :1955 Arrival Date:02/08/2017 Time:19:14 BedTrauma-C Private MD:Mayra Lala Diagnosis:Anxiety Reaction;Vomiting - Dehydration;Bronchospasm- Acute Presentation: 02/08 19:16 Acuity: INOCENTE 3 sc1 19:22 Presenting complaint: Patient states: feels like she cannot catch her breath, recently lb had pneumonia. c/o n/v for past 4 hrs. Transition of care: Home. AIR CAT ACTIVATION no. Notified ED Physician of Dr. Gregorio notified. 19:22 Method Of Arrival: Walk In lb 21:26 Asprin Given Given in ED 324 mg po. lb Triage Assessment: 19:25 General: Appears distressed, Behavior is anxious. Pain: Denies pain. Cardiovascular: lb Capillary refill < 3 seconds. Respiratory: Airway is patent Trachea midline Respiratory effort is even, unlabored, Respiratory pattern is regular, Breath sounds are clear bilaterally. Historical: - Allergies: No known drug Allergies; - Home Meds: 1. Lamictal Oral 2. Seroquel Oral 3. Wellbutrin Oral - PMHx: BIPOLAR DISORDER; - PSHx: c section; breast augmentation; - Tetanus: < 10 years. - Ebola Screening: : Patient denies exposure to infectious person. Patient denies travel to an Ebola-affected area in the 21 days before illness onset. . - Immunization history: Flu Vaccine < 1 year. - Social history: Smoking status: Patient states was never smoker of tobacco. Patient/guardian denies using alcohol. - Code Status:: Full code. Screenin:28 Infectious Disease Risk None. Abuse screen: Denies threats or abuse. Denies injuries lb from another. Nutritional screening: No deficits noted. Assessment: 19:27 See Triage Assessment done by same RN. Pain: Denies pain. Pain began 4 hours ago. lb Vital Signs: 19:26 BP 129 / 95; Pulse 94; Resp 22; Temp 98.2; Pulse Ox 97% on R/A; Weight 47.63 kg; Height lb 5 ft. 3 in. (160.02 cm); Pain 3/10; 21:00 BP 110 / 60; Pulse 70; Resp 16; Pulse Ox 95% on R/A; Pain 0/10; lb 19:26 Body Mass Index 18.60 (47.63 kg, 160.02 cm) lb Tom Coma Score: 19:35 Eye Response: spontaneous(4). Verbal Response: oriented(5). Motor Response: obeys cd commands(6). Total: 15. ED Course: 19:15 Patient arrived in ED. ds 19:15 Mayra Lala DO is Private Physician. ds 19:16 Rodger Gregorio MD is Attending Physician. cd 19:16 Triage completed. sc1 19:20 Taisha Marion is Primary Nurse. lb 19:28 Valuables Remains with patient. monitoring tech on. Pulse ox on. NIBP on. lb 19:28 EKG done. (by ED staff). lb 19:30 Inserted peripheral IV: saline lock: 20 gauge in right antecubital area and blood mv collected. 19:45 Port Xray Completed. ca 19:52 CHEST; SINGLE VIEW [id number] In Process Unspecified. EDMS 20:46 Mayra Lala DO is Referral Physician. cd 21:27 Oxygen O2 via not given. lb Administered Medications: 19:35 Drug: Zofran 4 mg; Route: IVP; Infused Over: 2 mins; Site: right antecubital; mv 21:14 Follow up: Response: Nausea is decreased lb 19:54 Drug: Aspirin Chewable Tablet 324 mg; Route: PO; mv 21:14 Follow up: Response: No adverse reaction lb 19:54 Drug: DuoNeb (Albuterol 2.5 mg, Atrovent 0.5 mg); 3 ml; Route: Nebulizer; mv 21:14 Follow up: Response: No adverse reaction lb 21:14 Drug: Ativan 0.5mg 0.5 mg; Route: Sublingual; lb 21:15 Follow up: Response: Pharmacy closed - take home med pack lb 21:14 Drug: Zofran 1 tablet; Route: PO; lb 21:15 Follow up: Response: Pharmacy closed - take home med pack lb 21:14 Drug: Ventolin MDI 2 puffs; Route: Inhalation; lb 21:15 Follow up: Response: Pharmacy closed - take home med pack lb Outcome: 20:47 Discharge ordered by . cd 21:24 Discharged to home ambulatory. lb 21:24 Condition: good 21:24 Discharge Assessment: Patient awake, alert and oriented x 3. No cognitive and/or functional deficits noted. Patient verbalized understanding of disposition instructions. 21:24 Instructed on discharge instructions, follow up and referral plans. no drinking with medication, no driving heavy equipment. 21:24 IV D/Gavin 21:25 Patient left the ED. stephy Signatures: Dispatcher [employer] EDHaley Joel RN RN sc1 Srot, Bridget, Reg Reg Rodger Parada MD MD cd Arterberry, Charles ca vogel, margaux mv Bollock, Lynda lb
--- NOTE | 2017-02-09 07:29 | RADIOLOGY REPORT ---
Two views of the chest are compared with prior films dated 12/04/2016. The heart and vessels are unremarkable. There has been interval clearing of the left lung base. No infiltrate, fluid or pneumothorax is seen. IMPRESSION: Interval clearing of the left lung base. No acute cardiopulmonary abnormality is identified. MTDD
== END 2017-02-08 21:26 | disposition home or self-care (01) ==
LOC: ER 19:14
DX: F41.9 Anxiety disorder, unspecified (principal); E86.0 Dehydration; R11.2 Nausea with vomiting, unspecified; J98.01 Acute bronchospasm; Z87.01 Personal history of pneumonia (recurrent); Z79.899 Other long term (current) drug therapy
CPT/HCPCS: 71010; 80048; 83735; 84484; 85025; 85379; 93005; 94640; 96374; 99285; J2405; J7611; J7620

== ENCOUNTER 2017-03-06 11:40 | Emergency (ER) | payer MEDICAID ==
--- NOTE | 2017-03-06 12:09 | ER NURSING DOCUMENTATION ---
Nurse's Notes [facility] Name:Candy Valencia Age:61 yrs Sex:Female :1955 Arrival Date:03/06/2017 Time:11:40 Bed1 Private MD: Diagnosis:Head Laceration-2cm length; Simple Closure (by MD) Presentation: 03/06 11:45 Acuity: INOCENTE 4 tg 11:51 Presenting complaint: Patient states: Hit head on paper towel lopez. Small laceration mk4 present on top of head with active red bleeding. Transition of care: Home. Complicating Factors: There are no complicating factors for this patient. Mechanism of Injury: Laceration sustained. 11:51 Method Of Arrival: Walk In [facility] Triage Assessment: 11:53 General: Appears in no apparent distress, Behavior is cooperative. Pain: Complains of mk4 pain in right frontal area. EENT: No deficits noted. Neuro: Level of Consciousness is awake, alert, Oriented to person, place, time, event, Pupils are PERRLA. Cardiovascular: Chest pain is denied. Respiratory: Airway is patent Respiratory effort is even, unlabored, Respiratory pattern is regular, symmetrical. GI: No deficits noted. Historical: - Allergies: No known drug Allergies; - Home Meds: 1. Lamictal Oral once daily 2. Seroquel Oral once daily 3. Wellbutrin Oral Unknown - PMHx: BIPOLAR DISORDER; - Tetanus: < 10 years. - Ebola Screening: : No symptoms or risks identified at this time. . - Immunization history: Flu Vaccine < 1 year. - Social history: Smoking status: Patient uses tobacco products, current some day smoker. Screenin:04 Infectious Disease Risk None. Abuse screen: Denies threats or abuse. Nutritional 4 screening: No deficits noted. Assessment: 12:03 See Triage Assessment done by same RN. 4 Vital Signs: 11:46 BP 151 / 86; Pulse 86; Resp 16; Temp 97.9(O); Pulse Ox 95% on R/A; Weight 47.63 kg (R); arc Height 5 ft. 3 in. (160.02 cm) (R); Pain 3/10; 11:46 Body Mass Index 18.60 (47.63 kg, 160.02 cm) arc Tom Coma Score: 12:03 Eye Response: spontaneous(4). Verbal Response: oriented(5). Motor Response: obeys mk4 commands(6). Total: 15. ED Course: 11:42 Patient arrived in ED. ama 11:45 Triage completed. tg 11:50 Alecia Chaves is Primary Nurse. 4 11:52 Rodger Gregorio MD is Attending Physician. cd 11:55 Allergy Band Placed Arm band placed on Bed in low position Call Light in Reach Side mk4 rails up x2. 12:04 Valuables Remains with patient. mk4 12:05 Assist Provider Assist provider with laceration repair on right frontal area that was mk4 2.5 cm. or less using sergio. Performed by Rdoger Gregorio MD Patient tolerated well. Wound care to laceration was cleaned with Patient tolerated well. Administered Medications: 12:03 Drug: Bacitracin Ointment (500 unit/g) 1 application; Route: Topical; Infused Over: 1 mk4 mins; Site: wound; Outcome: 11:53 Discharge ordered by MD. cd 12:07 Discharge ordered by MD. cd 12:08 Patient left the ED. 4 03/07 18:26 Discharge F/U Call: Spoke with: patient. Are you having any pain? no. Did your discharge instructions answer all of your questions? yes Overall Care on a scale of 1-10 with 10 being the best care, you rate our care as: Other comments: NO PROBLEMS Signatures: Robb Padilla, RN RN Iesha Qureshi RN RN Rodger Gregorio MD MD Jonathan Valenzuela, Reg Reg Alecia Cota [facility] Elizabeth Ibarra, Reg Reg arc
--- NOTE | 2017-03-06 12:09 | ER PHYSICIAN DOCUMENTATION ---
Physician Documentation [facility] Name:Candy Valencia Age:61 yrs Sex:Female :1955 Arrival Date:03/06/2017 Time:11:40 Bed1 Private MD: Rodger Abernathy Disposition: 03/06/17 12:07 Discharged to Home/Self Care. Impression: Head Laceration - 2cm length; Simple Closure (by MD). - Condition is Good. - Discharge Instructions: LACERATION, Scalp. - Medical Reconciliation form form. - Follow up: Emergency Department; When: 03/18/2017; Reason: Continuance of care, Staple/Suture removal. - Problem is new. - Symptoms have improved. - Notes: Keep Clean and Dry. Bacitracin Ointment each day for 5 days... John out in 12 days in the ER on March 18, 2017 HPI: 03/06 11:55 This 61 yrs old Female presents to ER via Walk In with complaints of cd Laceration To Head. 11:55 The patient has a laceration related to: stood up and her head hit the towel rack cd causing a laceration occurred at home, and there are no complicating factors. The laceration(s) is(are) located on the head. Onset: The symptom(s)/episode began/occurred acutely, just prior to arrival. Associated signs and symptoms: The patient has no apparent associated signs or symptoms, Pertinent negatives: dizziness, heavy bleeding, loss of consciousness. Historical: - Allergies: No known drug Allergies; - Home Meds: 1. Lamictal Oral once daily 2. Seroquel Oral once daily 3. Wellbutrin Oral Unknown - PMHx: BIPOLAR DISORDER; - Tetanus: < 10 years. - Ebola Screening: : No symptoms or risks identified at this time. . - Immunization history: Flu Vaccine < 1 year. - Social history: Smoking status: Patient uses tobacco products, current some day smoker. ROS: 11:55 Skin: Positive for laceration(s), of the head. cd 11:55 Neuro: Negative for altered mental status, dizziness, headache, loss of consciousness. 11:55 All other systems are negative. Exam: 11:55 Constitutional: The patient appears in no acute distress, alert, awake, anxious. cd 11:55 Head/face: Noted is a laceration(s), that is deep, that is linear, 1.5 cm(s), of the top of head. 11:55 Eyes: Pupils: equal, round, and reactive to light and accomodation. 11:55 Neck: Exam negative for acute changes. 11:55 Musculoskeletal/extremity: Exam is negative for acute changes. 11:55 Skin: Appearance: normal except for affected area. 11:55 Neuro: Exam negative for acute changes. Vital Signs: 11:46 BP 151 / 86; Pulse 86; Resp 16; Temp 97.9(O); Pulse Ox 95% on R/A; Weight 47.63 kg (R); arc Height 5 ft. 3 in. (160.02 cm) (R); Pain 3/10; 11:46 Body Mass Index 18.60 (47.63 kg, 160.02 cm) arc Tom Coma Score: 12:03 Eye Response: spontaneous(4). Verbal Response: oriented(5). Motor Response: obeys mk4 commands(6). Total: 15. Laceration: 11:55 Wound Repair of 1.5cm ( 0.6in ) subcutaneous laceration to top of head. Distal cd neuro/vascular/tendon intact. Anesthesia: Wound infiltrated with 3 mls of 2% lidocaine w/ Epi. Wound prep: Moderate cleansing with hibiclenz. Skin closed with 6 1-0 John using Staple gun. Dressed with Bacitracin, Open to air. Patient tolerated well. MDM: 11:52 Patient medically screened. cd 12:00 Data reviewed: vital signs, nurses notes, old medical records, and as a result, I will cd discharge patient. Data interpreted: Pulse oximetry: on room air is 95 %. Interpretation: normal. Counseling: I had a detailed discussion with the patient and/or guardian regarding: the historical points, exam findings, and any diagnostic results supporting the discharge/admit diagnosis, the need for outpatient follow up, for a recheck, with the patient's primary care provider, to return to the emergency department if symptoms worsen or persist or if there are any questions or concerns that arise at home. Response to treatment: the patient's symptoms have markedly improved after treatment. Dispensed Medications: 12:03 Drug: Bacitracin Ointment (500 unit/g) 1 application; Route: Topical; Infused Over: 1 mk4 mins; Site: wound; Signatures: Rodger Gregorio MD MD cd King, Melody mk4
[2017-03-06] MEDS ORDERED: BACITRACIN 1 APP/PKT PKT TOPICAL ONE (12:10)
== END 2017-03-06 12:09 | disposition home or self-care (01) ==
LOC: ER 11:40
DX: S01.01XA Laceration without foreign body of scalp, initial encounter (principal); W22.8XXA Striking against or struck by other objects, initial encounter; Y92.019 Unspecified place in single-family (private) house as the place of occurrence of the external cause; Z79.899 Other long term (current) drug therapy; F17.210 Nicotine dependence, cigarettes, uncomplicated
CPT/HCPCS: 12001; 99283

== ENCOUNTER 2017-03-18 15:46 | Emergency (ER) | payer MEDICAID ==
--- NOTE | 2017-03-18 15:59 | ER NURSING DOCUMENTATION ---
Nurse's Notes [facility] Name:Candy Valencia Age:61 yrs Sex:Female :1955 Arrival Date:03/18/2017 Time:15:46 Bed2 Private MD: Diagnosis:Staple Removal Presentation: 03/18 15:48 Acuity: INOCENTE 4 tg 15:55 Presenting complaint: Patient states: staple removal. [facility] 15:55 Method Of Arrival: Private Vehicle [facility] Historical: - Allergies: No known drug Allergies; - Home Meds: 1. Lamictal Oral once daily 2. Seroquel Oral once daily 3. Wellbutrin Oral Unknown - PMHx: BIPOLAR DISORDER; Head Laceration - 2cm lengthSimple Closure (by MD)(March 06, 2017); Vital Signs: 15:55 BP 127 / 80; Pulse 78; Resp 18; Temp 98.3; Pulse Ox 93% on R/A; va1 ED Course: 15:48 Patient arrived in ED. 15:48 Triage completed. tg 15:55 Haley Dodson, RN is Primary Nurse. [facility] Administered Medications: No medications were administered Outcome: 15:57 No charge visit due to Staple Removal [facility] 15:58 Discharge ordered by MD. [facility] 15:58 Patient left the ED. [facility] Signatures: Robb Padilla RN RN Haley Dodson RN RN Mery Bergeron
== END 2017-03-18 15:59 | disposition home or self-care (01) ==
LOC: ER 15:46
DX: Z48.02 Encounter for removal of sutures (principal); S01.01XD Laceration without foreign body of scalp, subsequent encounter